=== PATIENT | female | born 2000 | race Caucasian/White ===

== ENCOUNTER 2024-06-19 15:12 | Emergency (ER) | payer BC, OTHER, SELFPAY ==
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
--- OUTSIDE RECORDS SUMMARY | 2024-06-19 15:22 | XMS_ITS | Data Portability ---
Author Organization [facility], [facility] [address] [facility] [address] Assessment No assessment recorded. Plan of Treatment Reminders Order Date Submit Date Provider Last Modified By Organization Details Last Modified Time Details Appointments None recorded. Lab SARS CoV 2 (COVID-19) Ag, QL, IA, upper respiratory specimen 2023 024 [email or web address] [facility], [address] [facility], [address], [place], [address], 4 09:46:14 Referral None recorded. Procedures None recorded. Surgeries None recorded. Imaging None recorded. Medication Orders Augmentin 875 mg-125 mg tablet 2023 024 [id number], [address], [place], [id number], 4 09:46:27 Deborah Hives 180 mg tablet 2023 024 [facility][id number], [address], [place], [id number], 4 09:46:26 nystatin 100,000 unit/mL oral suspension 2022 023 [id number], [address], [place], [id number], 4 09:28:19 Patient TargetsNo targets recorded. Patient Instructions Encounter Date Encounter Id Patient Instructions Last Modified By Organization Details Last Modified Time 11/29/2023 [id number] Acute Sinusitis: Care Instructions [email or web address] Not available 11/29/2023 09:46:12 Reason for Referral None Reported. Results Created Date Observation Date Name Description Value Unit Range Abnormal Flag Note LastModifiedBy Organization Detail LastModifiedTime 11/29/19 24 11/29/2023 SARS CoV 2 (COVI D-19) Ag, QL, IA, upper respi rator y speci men Unknown Analyte negati ve Not Available [facility] [address] [facility] [address], [place], [address], 11/29/2023 09:31:15 Result Notes None recorded. Problems Name Problem SNOMED Code Status Onset Date Resolution Date Notes Provider Name and Address Organization Details Recorded Time Tachycardia 8316189 Active 024 KLEVER tran [place] - [facility] 4 09:29:08 Anxiety 29128100 Active 023 BEBA tran [place] - [facility] 3 16:47:30 Problem Notes None recorded. Medical Equipment None Reported. Allergies No known drug allergies Medications Name Sig Start Date Stop Date Status Note LastModified by Organization Details LastModified Time medroxyprog esterone 10 mg tablet TAKE 1 TABLET BY MOUTH DAILY FOR 10 DAYS EACH MONTH 06/22 completed Not Available Not Available Not Available Augmentin 875 mg-125 mg tablet Take 1 tablet every 12 hours by oral route for 10 days. 2023 active Not Available Not Available Not Avai lable nystatin 100,000 unit/mL oral suspension SHAKE LIQUID AND TAKE 5 ML BY MOUTH FOUR TIMES DAILY FOR 5 DAYS 11/28 completed Not Available Not Available Not Available ibuprofen 800 mg tablet TAKE 1 TABLET BY MOUTH EVERY 6 HOURS FOR UP TO 10 DAYS NEEDED FOR MILD PAIN 06/22 completed Not Available Not Available Not Available ondansetron HCl 4 mg tablet active Not Available Not Available Not Available sulfamethox azole 800 mg-trimetho prim 160 mg tablet active Not Available Not Available Not Available ketorolac 10 mg tablet TAKE 1 TABLET BY MOUTH EVERY 6 HOURS FOR UP TO 4 DAYS NEEDED FOR MODERATE PAIN 04/16 /2023 completed Not Available Not Available Not Available sertraline 25 mg tablet TAKE 1 TABLET BY MOUTH DAILY 11/28 completed Not Available Not Available Not Available nitrofurant oin monohydrate /macrocryst als 100 mg capsule TAKE 1 CAPSULE BY MOUTH TWICE DAILY FOR 7 DAYS active Not Available Not Available No t Available Bystolic active Not Available Not Avai lable Not Available BinaxNOW COVID-19 Ag Self Test kit Use as Directed on the Package 06/22 completed Not Available Not Available Not Available Deborah Hives 180 mg tablet Take 1 tablet every day by oral route for 10 days. 2023 active Not Available Not Available Not Avai lable Vitals Date Recorded Body height Body mass index (BMI) Percentile per age and sex Body mass index (BMI) Body weight Body temperature Oxygen saturation Oxygen saturation in Arterial blood by Pulse oximetry Heart rate Respiratory rate Systolic blood pressure Diastolic blood pressure Provider Name and Address Organization Details Last Updated DateTime 3 157.48 cm 92 % 30.2 kg/m2 57773.7 4 g 97.5 [degF] 98 % 98 % 58 /min 16 /min 120 mm[Hg] 81 mm[Hg] BEBA NAVA [place] - [facility] 3 16:48:54 Date Recorded Body height Body mass index (BMI) Body weight Respiratory rate Oxygen saturation Oxygen saturation in Arterial blood by Pulse oximetry Body temperature Heart rate Pain severity - 0-10 verbal numeric rating [Score] - Reported Systolic blood pressure Diastolic blood pressure Provider Name and Address Organization Details Last Updated DateTime 4 157.48 cm 30 kg/m2 89319.1 5 g 18 /min 98 % 98 % 99 [degF] 90 /min 0 110 mm[Hg] 76 mm[Hg] KLEVER VILLA - [facility] 4 09:30:55 Social History Question Answer Notes LastModified by Organizat ion Details LastModified Time Tobacco Smoking Status Never Smoker BEBA tran [place] - [facility] 06/22/2022 16:47:42 What Is Your Level Of Alcohol Consumption? None [email or web address] Information not available 06/22/2022 Have You Had A Flu Shot This Season? No Information not available 11/29/2023 If No, Would You Like A Flu Shot Today? No Information not available 11/29/2023 Do You Use Any Illicit Or Recreational Drugs? No Information not available 06/22/2022 Have You Recently Traveled Abroad? No [email or web address] Information not available 06/22/2022 Sex: Unknown Functional Status None recorded. Mental Status None recorded. Family History Relationship Description Onset Age of this Age Resolved Age Notes LastModified by Organization Details LastModified Time Father No current problems or disability [email or web address] Not available 06/07 16:47:33 Mother No current problems or disability [email or web address] Not available 06/07 16:47:33 Medical History No medical history recorded. Gynecological History Statement/Question Response Date of LMP 10/28/2023 Is there any chance of ? No LMP Definite Obstetrics History GPAL:G 0 P 0 0 0 0 Past Encounters Encounter ID Performer Location Encounter Start Date Encounter Closed Date Diagnosis/Indication Diagnosis SNOMED-CT Code Diagnosis ICD10 Code Diagnosis Note [id number] [address] [place] [address] [place] [address] 05/26/2020 09:51:59 05/26/2020 10:20:49 [id number] [address] [facility] [place] [address] 09/15/2021 13:52:24 09/15/2021 14:20:08 [id number] Vladimir Lowe MD [address] [facility] [place] [address] 06/22/2022 16:39:32 06/22/2022 16:57:03 Candidiasis of mouth 88309493 B37.0 [id number] TORI MUÑOZ MD. [address] [facility] [place] [address] 11/29/2023 09:22:02 11/29/2023 09:45:26 Acute sinusitis 35392834 J01.90 Recheck in 2-3 days if no better. To ER for worsening symptoms. Suspected COVID-19 77444 4004 Z20.822 Health Concerns Section Related Observation LastModified by Organization Detai ls LastModified Time None Recorded Concern Status LastModified by Organization Details LastModified Time None Recorded Advance Directives Directive None Recorded Payers Encounter Date Sequence Insurance Name Policy Number Policy Baez Covered Member ID Baez Member ID Guarantor Name 05/26/2020 2 [employer] [place] () Tate Bryan [id number] [place] 09/15/2021 2 [employer] [place] [employer] [place] () Tate Bryan [id number] [place] 06/22/2022 1 [place] [id number] Nixon Monalisa [id number] [place]oly [place] 06/22/2022 2 [place] [employer] [place] [id number] Yoly Bryan 11/29/2023 1 [place] [id number] Nixon Sheldon [id number] Yoly Bryan 11/29/2023 2 [employer] [place] [employer] [place] () Tate Bryan [id number] Yoly Bryan Notes Date Note Type Note Provider Name and Address Organization Details Recorded Time 06/22/2022 text/html pt is concerned about oral thrush. she states that Patient just had baby x 3 days and has been on a lot of antibiotics Vladimir Lowe MD [address] [place], [address], [place] - [facility] 06/22/2022 16:55:48 11/29/2023 text/html Sinus Complaints UCReported bypatient.Location :sinus pain;facial pain;sinus pressure Associated Symptoms:no fever; no nausea or vomiting;nasal discharge from nostrils;headache; Post nasal drip;nasal passage blockage Quality:worsening; purulent Duration:intermitt ent Severity:moderate TORI MUÑOZ MD. [address] [place], [address], [place] - [facility] 11/29/2023 09:55:11 OBGyn Episode No OBEpisode recorded.
--- OUTSIDE RECORDS SUMMARY | 2024-06-19 15:22 | XMS_ITS | Continuity of Care Document ---
Author Name [facility] Organization [facility] Care Team Providers Care As400 Developer Name Role Phone [facility] Unavailable Unavailable Problems Combined list of problems from Department of Defense and Veterans Affairs facilities. It does not include entries that were removed or entered in error. Problem Status Onset Date Problem Type Date of Resolution Comments Source Anxiety Active 07/24/2023 Diagnosis 0013C-AF-C- 1 9TH [facility] POTS - postural orthostatic tachycardia syndrome Active 07/23/2023 Diagnosis 2154F-FA-I-1 9TH [facility] Anxiety Active 07/14/2023 Diagnosis 0013C-AF-C- 1 9TH [facility] Anxiety Active Condition 4984P-UV-R-1 9TH [facility] Results Combined list of recent chemistry, hematology and other laboratory results from Department of FSI and Veterans [employer], ranging from 15 months to all on record, depending upon the facility. Order Name Results Value Reference Range Date Interpretation Specimen Comments Source Chemistry Beta hCG, Serum Qual Positive 1 (10/11/21 1:50 PM) 10/11 N Interpretive Data: Interpretati ons: If result is questionable , repeat in 48 hours or reorder as B-HCG QT. NORMAL RANGE: The expected value for Human Chorionic Gonadotropin is negative in healthy men and non- women. 0013A-[facility] F[facility]T [facility] Vital Signs Combined list of inpatient and outpatient Vital Signs from Department of [facility] and [employer], ranging from 12 months to all on record, depending upon the facility. Vital Sign Value Date Comments Source Mean Arterial Pressure, Calc 85 mm[Hg] 06/26/2023 18:22:00 3343A-HA-T-1 9 [facility] Blood Pressure Manual Automatic 06/26/2023 18:22:00 2332M-RX-I-19TH [facility] BP Site Left arm 06/26/2023 18:22:00 0013C -AF-C-19TH [facility] Systolic Blood Pressure 109 mm[Hg] 06/26/2023 18:22:00 9873W-JO-N-19TH [facility] Diastolic Blood Pressure 73 mm[Hg] 06/26/2023 18:22:00 4077T-PO-Q-19TH [facility] Temperature Temporal Artery 36.7 Mona 06/26/2023 18:22:00 8780C-ZC-D-1 9TH [facility] Respiratory Rate 16 br/min 06/26/2023 18:22:00 2737E-OZ-Y-19TH [facility] Peripheral Pulse Rate 69 bpm 06/26/2023 18:22:00 7394N-TS-Z-19TH [facility] Respiratory Rate 18 br/min 10/11/2021 19:09:00 0895J-ED-S-19TH [facility] Peripheral Pulse Rate 82 bpm 10/11/2021 19:09:00 6186K-KR-T-19TH [facility] Systolic Blood Pressure 108 mm[Hg] 10/11/2021 19:09:00 1662L-YB-C-19TH [facility] Diastolic Blood Pressure 72 mm[Hg] 10/11/2021 19:09:00 4284C-ZS-T-19TH [facility] Mean Arterial Pressure, Calc 84 mm[Hg] 10/11/2021 19:09:00 6712Q-DR-N-1 9TH [facility] Temperature Temporal Artery 37.1 Mona 10/11/2021 19:09:00 4198U-RX-J-1 9TH [facility] Encounters Combined list of: 1) Encounters from Department of Veterans Affairs facilities going backup to the last 18 months, not all VA inpatient encounters are included; 2) Encounters from the Department of Defense facilities going backup to 280 months. Location Location Details Encounter Type Encounter Number Reason For Visit Attending Provider ADM Date DC Date Status Disposition Source Kassandra-AF- C-19TH [facility] Between Visit [id number] 06/30 Discharge Disposition: Home or Self Care 0013C-A F-C-19T H [facility] [place] Gisela-AF- C-19TH [facility] [id number] Anxiety disorde r, unspeci fied B[facility]RA [facility] 07/13 Discharge Disposition: Home or Self Care [address] [place] [address] [facility] Between Visit [id number] 07/14 Discharge Disposition: [facility] or Self Care [facility] [id number] Postura l orthost atic tachyca rdia syndrom e [POTS], Anxiety disorde r, unspeci asael [facility] 07/22 Discharge Disposition: Home or Self Care [address] [place] [address] [facility] Procedures Combined list of: 1) Procedures from Department of Veterans Affairs facilities [facility], not all CT non-surgical procedures are included; 2) All procedures from the Department [facility] facilities. Procedure Procedure Type Code Date Perfomer Comments Sour e No data available for this section Ambulatory P harmacy Social History Combined list of available smoking, tobacco, and other social history from Department of [facility] and [facility] facilities. Social History Type Response Date Comment Sourc e Sex Representation Female (finding) 04/23/2021 Unknown Organization Tobacco Exposure to Secondha nd Smoke: No. Never-cigarette user Cigarette use:. Never-other tobacco user (not cigarettes) Other Tobacco use:. Ambulatory Pharmacy Sexual Orientation Ambula tory Pharmacy Gender identity Ambulator y Pharmacy Assessment and Plan Combined list of future care activities from Department of Defense and Veterans Affairs facilities (e.g., assessment and plan notes, appointments, orders, and referrals). Additional future care activities may be listed in the Plan of Care section. Result Assessment and Plan Date Source Assessment and Plan Extracted from:Title : Virtual- Anxiety Author: BUSHRA BENTON NP Date: 07/22/23 1. A nxiety This appointment completed virtually. I did not physically see the patient. Discussed limitations of telephone appointment visits. Patient s name and verified. The patient verbally agreed to a telehealth appointment and documentation. Pt reports she was newly diagnosed with POTS and is not able to take the hydroxyzine or zoloft due to the fact that they cause her to have a higher than normal heart rate. Pt with hx of generalized anxiety, without complications, here for follow-up/monitoring. Denies SI/HI or panic attacks. Doing well with current treatment regime. - Med Changes: Stop taking hydroxyzine and zoloft.. Start Alprazolam 0.25mg #10 for the month. Continue Buspirone 7.5mg BID - Referral: Psychiatry for further eval, CBT, and medication mngt. - CRISTOFER-7 =1 Pt Education: - Counseling for stress mgmt techniques and offered handout for coping with anxiety. - Informed the patient of APImetrics and other available resources. - Pt should return to clinic for any worsening s/s and report to the nearest ER if they develop SI/HI or a panic attack. - Discussed common ADRs of lethargy, decreased libido, GI upset, etc and to not abruptly stop their medication. Follow-Up: - Pt is to f/u in 2-3 weeks virtually due to medication change and in 6 months if pt has been stable on current treatment. - Pt verbalized an understanding and agrees with plan of care. 2. P OTS - postural orthostatic tachycardia syndrome Bushra Benton NP [facility], [facility] [place] DEYANIRA CAMPOS Extracted from:Title: Virtual- Anxiety Author: BUSHRA BENTON NP Date: 07/14/23 1. A nxiety This appointment completed virtually. I did not physically see the patient. Discussed limitations of telephone appointment visits. Patient s name and verified. The patient verbally agreed to a telehealth appointment and documentation. Pt reports having increase in panic attacks recently. She reports having tachycardia that causes her anxiety to increase. She is looking for a medication to help in those situations. Pt denies any SI/HI ideations and understands that that is a reason to go to the ER. - Prescribed Vistaril for anxiety/panic attacks. Discussed if this is not helpful, to make a follow up appointment to discuss other options. - Follow up as needed. Ordered: hydrOXYzine(hydrOXYzine pamoate 50 mg oral capsule), 1 cap(s), Oral, TID, PRN anxiety, X 30 days, # 90 cap(s), 3 total refill(s), Acute, 11/11/2023, 1 cap(s) Oral TID,x30 days,PRN:anxiety, Pharmacy: [id number] [External Rx] Bushra Benton NP [facility], [facility] [place] [employer] Extracted from:Title: Office Clinic Note Author: PHUONG YANG, DO Date: 06/26/23 1. A bnormal wellness exam Pt is a 2 1 Years F - Discussed a healthful diet and regular exercise - Sent to immunizations clinic to ensure UTD - C ervical cancer screening , normal per pt - HCV testing p reviously performed; negative - HIV testing p reviously performed; negative Ordered: sertraline(Zoloft 25 mg oral tablet), 1 tab(s), Oral, Daily, # 90 tab(s), 1 total refill(s), Maintenance, 1 tab(s) Oral Daily, Pharmacy: [facility] #[id number] [External Rx] 2. A nxiety anxiety, chronic, established, previously well managed w/ zoloft 25mg daily, reports this worked really well for her in the past. She stopped taking it in 2022 after having some nausea in her early post course that was suspected to be 2/2 zolfot. was on this tx for 18 months previously w/otu adverse effects. rec retrying zoloft 25 mg daily pt counseled on GI side effects that are generally short term w/ this rx. pt denies SI/HI, given ED precautions for SI/Hi. Ordered: sertraline(Zoloft 25 mg oral tablet), 1 tab(s), Oral, Daily, # 90 tab(s), 1 total refill(s), Maintenance, 1 tab(s) Oral Daily, Pharmacy: [facility] #[id number] [External Rx] Extracted from:Title: CSSP Author: DELANEY FERRER Date: 10/11/21 [facility] Current Visit No Results Found Addendum by KAISER WHITMAN RN on October 11, 2021 16:31:51 CDT RESULTS: Called patient and verified full name and , not on PRP or flying status, not deployment related. Patient was informed her HCG was positive and m edications verified with patient. ? Per TIPS and patient report, she has Other healthcare insurance (OHI) and referral can not be placed as pays secondary and referral will not process. Pt advised to contact her primary insurance (BC[employer]) to find their list of in network providers and schedule an appt with FILTER TIP CATCHER. Patient r equested rx o f vitamins a t this time and was given certified medical technician instruction, ASE to monitor for, and f/u instructions. She was given information on the Family Advocacy Program will need to refer all related questions to her FILTER TIP CATCHER once care is established. PNV will be ready for activation in the [facility] in 24-48 business hours. MTF hours of operation and activation process provided to patient. Instructed her to go to the nearest ER if she experiences severe abdominal pain, cramping or vaginal bleeding, given NAL information as well. Patient asked questions from the MD Questionnaire and most current Test CSSP: 21yo F G 1 P 0 with LMP approx.29 Aug 2021 Positive Home : yes Current Medications: Z oloft 25 mg and Provera rx from [facility] FILTER TIP CATCHER for PCOS. Pt informed to stop taking this medication and f/u with FILTER TIP CATCHER. Pt stated she has not taken this medication in 2-3 weeks and denied any vaginal bleeding, cramping, s/s or concerns. Chronic Medical Problems: PCOS History of High Risk Pregnancies: denies Denies history of ectopic , thyroid disease, tubal surgery, infertility, diabetes, heart disease, pain since missed period and vaginal bleeding. Patient denies smoking and drinking. Patient does not work on [employer]. Patient verbalized agreed to plan of care/discussion and denied any additional questions or concerns at this time. Reviewed previous encounter notes, meds, labs, rad reports, JLV, T IPS, and allergies. PNV o rders placed per CSSP. 06/19/2024 7962E[facility] Functional Status Combined list of recent functional and cognitive assessments recorded at Department of Defense and Veterans Affairs (VA).VA Functional [place] Measurement (FIM) Scale: 1 = Total Assistance (Subject = 0% +), 2 = Maximal Assistance (Subject = 25% +), 3 = Moderate Assistance (Subject = 50% +), 4 = Minimal Assistance (Subject = 75% +), 5 = Supervision, 6 = Modified [place] (Device), 7 = Complete [place] (Timely, Safely). Assessment Date/Time Source Assessment Type Assessment Skill Assessment Score Assessment Details No data available for this section
[2024-06-19 15:26] VITALS: BP 119/71; PULSE 107; RESP 18; TEMP 36.9; O2SAT 100
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
== END 2024-06-19 16:40 | disposition home or self-care (01) ==
PROVIDERS: Emergency Provider Nurse Practitioner; Referring Provider Emergency Medicine
DX: S82.841A Displaced bimalleolar fracture of right lower leg, initial encounter for closed fracture (principal); V86.06XA Driver of dirt bike or motor/cross bike injured in traffic accident, initial encounter
CPT/HCPCS: 29515; 73610; 99214; G0463

== ENCOUNTER 2025-01-14 08:06 | Emergency (ER) | payer BC, SELFPAY ==
--- OUTSIDE RECORDS SUMMARY | 2023-09-18 03:50 | XMS_ITS ---
Author Organization [facility] MAIN Address [address] [facility] [place]A Johnston [id number] Care Team Providers Care Parts Control Clerk Name Role Phone [facility] Care Provide r Unavailable Jamaal Justin Unavailable [phone] Nikko Ramirez Unavailable [phone] Allergies No Known Allergies REASON FOR VISIT [...] none Encounters Encounter Location Date Provider Diagnosis [facility] MA[facility] 7 [facility] [place]A Johnston [phone] 09/18/2023 Nikko Ramirez Plan Of Treatment No Information Progress Notes * Yoly ADAMS LDOB:[birth year] (24 yo F)Acc No.[id number]:09/18/2023 History and Physical Patient: Yoly Neumann Provider: Anthony Ramirez M.D. :2000 A ge:23 Y S ex:Female Date:09/18/2023 Address:[address] [id number] Pcp:[facility] ck Subjective: * Chief Complaints: * [...] * Electronic signature of Harpal Ramirez on 01/14/2025 at 08:09 AM MANAGEMENT RECRUITER Sign off status: Pending * Provider: Anthony Ramirez M.D. Date: 0 09/18/2023 Generated for Jan rodriguez/Cyril/eTpinasmitting on: 03/16/2024 08:09 AM MANAGEMENT RECRUITER
--- OUTSIDE RECORDS SUMMARY | 2023-12-30 08:20 | XMS_ITS ---
Author Organization [facility] [id number] Care Team Providers Care Lockstitch Lining Setter Name Role Phone [place], [facility] Primary Care Provide r Unavailable Jamaal Justin Unavailable [phone] Nikko Ramirez Unavailable [phone] Encounters Encounter Location Date Provider Diagnosis [facility] [id number] 12/30/2023 Nikko Ramirez Plan Of Treatment No Information Progress Notes * Yoly ADAMS LDOB:[birth year] (24 yo F)Acc No.[id number]:12/30/2023 History and Physical Patient: Yoly Neumann Provider: Anthony Ramirez M.D. :2000 A ge:23 Y S ex:Female Date:12/30/2023 Address:[address] [place] , [id number] Pcp:[facility] Care Plan Details* * Electronic signature of Harpal Ramirez on 01/14/2025 at 08:09 AM BEEF LUGGER Sign off status: Pending * Provider: Anthony Ramirez M.D. Date: Generated for Jan rodriguez/Cyril/eTransmitting on: 03/16/2024 08:09 AM BEEF LUGGER
--- OUTSIDE RECORDS SUMMARY | 2024-09-26 03:15 | XMS_ITS | Continuity of Care Document ---
Author Organization [facility] Address [address] [place] [address] Phone Care Team Providers Care [employer] Power[employer] Supervisor Name Role Phone Kenneth Chavez Unavailable Unavailable Medications Medication Instructions Dosage Effective Dates (start - stop) Status Comments GABAPENTIN 300MG CAPSULES TAKE 1 CAPSULE BY MOUTH THREE TIMES DAILY - Active oxycodone 5 mg tablet take 1 tablet by oral route every 4 - 6 hours as needed as needed 5 MG - Active This medicine is an opioid narcotic and should be used only as needed. Wean off the medication as soon as tolerated. aspirin 81 mg tablet,delayed release take 1 tablet by oral route 2 times every day 81 MG - Active This medication is to help prevent blood clots. BYSTOLIC (unknown strength) take 1 tablet by oral route every day Not Available - Active Procedures Procedure Date RADEX ANKLE COMPL MINIMUM 3 VIEWS POSTOP FOLLOW-UP VISIT RADEX ANKLE COMPL MINIMUM 3 VIEWS Ankle Brace Lace Up Or Similar POSTOP FOLLOW-UP VISIT RADEX ANKLE COMPL MINIMUM 3 VIEWS Pneuma/vac walk boot pre ots POSTOP FOLLOW-UP VISIT TREATMENT OF ANKLE FRACTURE RADEX ANKLE 2 VIEWS OFFICE/OUTPATIENT VISIT NEW Advance Directives Directive Yes / No Effective Date File Name No Information Encounters Encounter Description Practice Location Reason(s) For Visit Diagnoses Date Provider Providers Copied on Encounter [facility], [address], [place], [address], [place] tel:[phone] [facility] Closed fracture of distal end of right fibula with routine healing, unspecified fracture morphology, subsequent encounter 5 Ajay Cooper. [address], [place], [place], [id number] , [place]. tel: [phone] [facility], [address], [place], [address], [place] tel:[phone] [facility] Closed fracture of distal end of right fibula with routine healing, unspecified fracture morphology, subsequent encounter 5 Ajay Cooper. [address], [place], [place], [id number] , [place]. tel: [phone] [facility], [address], [place], [address], [place] tel:[phone] [facility] Closed fracture of distal end of right fibula with routine healing, unspecified fracture morphology, subsequent encounter 5 Osei Miller. [address], [place], [place], [id number] . tel: [phone] [facility], [address], [place], [address], [place] tel:[phone] [facility] S/P ORIF (open reduction internal fixation) fracturePersonal history of (healed) traumatic fracture 5 Ajay Cooper. [address], [place], [place], [id number] , [place]. tel: [phone] [facility], [address], [place], [address], [place] tel:[phone] [facility] No Information 5 Osei Miller. [address], [place], [place], [id number] . tel: [phone] [facility], [address], [place], [address], [place] tel:[phone] [facility] Other fracture of upper and lower end of right fibula, initial encounter for closed fracture 5 Osei Miller. [address], [place], [place], [id number] . tel: [phone] [facility], [address], [place], [address], [place] tel:[phone] [facility] Closed fracture of distal end of right fibula, unspecified fracture morphology, initial encounterSyndesm otic disruption of right ankle, initial encounter 5 Osei Miller. [address], [place], [place], [id number] . tel: [phone] OFFICE/OUTPA TIENT VISIT NEW [facility], [address], [place], [address], [place] tel:[phone] [facility] Closed fracture of distal end of right fibula, unspecified fracture morphology, initial encounterBody mass index [BMI] 29.0-29.9, adult Jun- 5 Ajay Cooper. [address], [place], [place], [id number] , [place]. tel: [phone] Family History Family Member Type Diagnosis Age At Onset No Information Payers Payer name Insurance type Covered constitution party ID Authorangelesa brando(s) [place] [address] [place] [id number] [facility] [place] [id number] Social History Type Description Quantity Date Captured Comments Alcohol Use Details Unknown Caffeine Use Details Unknown Tobacco Use Status Current non-smoker Smoking Status Never smoker Sex Female Chief Complaint And Reason For Visit No Information Reason For Referral Reason For Referral No Information Plan Of Treatment Date Type Action Status Referral Ordered: RADEX ANKLE COMPL MINIMUM 3 VIEWS RT ankle ordered Referral Ordered: RADEX ANKLE COMPL MINIMUM 3 VIEWS RT ordered Referral Ordered: RADEX ANKLE COMPL MINIMUM 3 VIEWS LT ordered Referral Ordered: RADEX ANKLE 2 VIEWS RT ordered History Of Present Illness Encounter Date Complaint History Of Prese nt Illness No Information Functional Status Date Functional Assessmen t No Information Instructions Date Instruction Additional Infor jorje Exercise promotion: stretching R elated to Body mass index [BMI] 29.0-29.9, adult Assessments Type Assessment Date assessment Closed fracture of d istal end of right fibula with routine healing, unspecified fracture morphology, subsequent encounter Patient Care Teams Name Effective Dates (start - stop) Status Members No Information
--- OUTSIDE RECORDS SUMMARY | 2025-01-14 08:08 | XMS_ITS | Encounter Summary ---
Author Organization [facility] Address [address] [place] [address] Phone Care Team Providers Care Rehabilitation Clerk Name Role Phone Joy Steele MD Primary Care Provider [phone] No, Physician Primary Care Provider [phone] Juancho Ba Primary Care Provider [phone] Encounter Details Date Type Department Care Team (Latest Contact Info) Description 06/29/2023 Orders Only [facility] Jud Lizarraga, [address] [facility] [address] [place] [address] Social History Tobacco Use Types Packs/Day Years Used Date Smoking Tobacco: Never Smokeless Tobacco: Never Comments Unknown Sex and Gender Information Value Date Recorded Sex Assigned at Not on file 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 Gender Identity Not on file Sexual Orientation Not on file documented as of this encounter Plan of Treatment Not on file documented as of this encounter Procedures Procedure Name Priority Date/Time Associated Diagnosis Comments SCAN - LABS 06/29/2023 CARDIOLOGY DOCUMENT SCAN 06/29/2023 documented in this encounter Results * SCAN - LABS (06/29/2023) Result [facility] Jud Lizarraga RN Final Result * Cardiology Document Scan (06/29/2023) Anatomical Region Laterality Modality Other us Jud Lizarraga RN [facility] P ROCEDURES Final Result documented in this encounter Visit Diagnoses Not on filedocumented in this encounter Care Teams Rehabilitation Clerk Relationship Specialty Start Date End Date Joy Steele MD PCP - General 08/11/16 10/27/23 No, Physician PCP - General 10/28/23 09/27/24 Juancho Ba PA [address] [address] PCP - General Family Medicine 09/28/24 documented as of this encounter
--- OUTSIDE RECORDS SUMMARY | 2025-01-14 08:08 | XMS_ITS | Encounter Summary ---
Author Organization [facility] Address [address] [place] [address] Phone Care Team Providers Care Linting Machine Operator Name Role Phone Joy Steele MD Primary Care Provider [phone] No, Physician Primary Care Provider [phone] Juancho Ba Primary Care Provider [phone] Encounter Details Date Type Department Care Team (Latest Contact Info) Description 12/29/2022 Orders Only [facility] Jud Lizarraga, SUZANNE [address] [facility] [address] [place] [address] Social History Tobacco Use Types Packs/Day Years Used Date Smoking Tobacco: Never Smokeless Tobacco: Never Comments Unknown Sex and Gender Information Value Date Recorded Sex Assigned at Not on file 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 Gender Identity Not on file Sexual Orientation Not on file documented as of this encounter Plan of Treatment Not on file documented as of this encounter Procedures Procedure Name Priority Date/Time Associated Diagnosis Comments CARDIOLOGY DOCUMENT SCAN 12/29/2022 documented in this encounter Results * Cardiology Document Scan (12/29/2022) Anatomical Region Laterality Modality Other Jud Lizarraga RN [facility] P ROCEDURES Final Result documented in this encounter Visit Diagnoses Not on filedocumented in this encounter Care Teams Linting Machine Operator Relationship Specialty Start Date End Date Joy Steele MD PCP - General 08/11/16 10/27/23 No, Physician PCP - General 10/28/23 09/27/24 Juancho Ba PA [address] [address] PCP - General Family Medicine 09/28/24 documented as of this encounter
--- OUTSIDE RECORDS SUMMARY | 2025-01-14 08:08 | XMS_ITS | Encounter Summary ---
Author Organization [facility] Address [address] [place] [address] Phone Care Team Providers Care Picker / Packer Name Role Phone Joy Steele MD Primary Care Provider [phone] No, Physician Primary Care Provider [phone] Juancho Ba Primary Care Provider [phone] Encounter Details Date Type Department Care Team (Latest Contact Info) Description 11/28/2022 Orders Only 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 Gender Identity Not on file Sexual Orientation Not on file documented as of this encounter Plan of Treatment Not on file documented as of this encounter Procedures Procedure Name Priority Date/Time Associated Diagnosis Comments SCAN - RADIOLOGY/IMAGING 11/28/2022 documented in this encounter Results * SCAN - RADIOLOGY/IMAGING (11/28/2022) Anatomical Region Laterality Modality Other Result [facility] Jud Lizarraga RN Final Result documented in this encounter Visit Diagnoses Not on filedocumented in this encounter Care Teams Picker / Packer Relationship Specialty Start Date End Date Joy Steele MD PCP - General 08/11/16 10/27/23 No, Physician PCP - General 10/28/23 09/27/24 Juancho Ba PA [address] [address] PCP - General Family Medicine 09/28/24 documented as of this encounter
--- OUTSIDE RECORDS SUMMARY | 2025-01-14 08:08 | XMS_ITS | Encounter Summary ---
Author Organization [facility] Address [address] [place] [address] Phone Care Team Providers Care Bathroom Tiling Professional Name Role Phone Joy Steele MD Primary Care Provider [phone] No, Physician Primary Care Provider [phone] Juancho Ba Primary Care Provider [phone] Encounter Details Date Type Department Care Team (Latest Contact Info) Description 01/08/2023 Orders Only [facility] Jud Lizarraga, SUZANNE [address] [facility] [address] [place] [address] Social History Tobacco Use Types Packs/Day Years Used Date Smoking Tobacco: Never Smokeless Tobacco: Never Comments Unknown Sex and Gender Information Value Date Recorded Sex Assigned at Not on file 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 Gender Identity Not on file Sexual Orientation Not on file documented as of this encounter Plan of Treatment Not on file documented as of this encounter Procedures Procedure Name Priority Date/Time Associated Diagnosis Comments CARDIOLOGY DOCUMENT SCAN 01/08/2023 documented in this encounter Results * Cardiology Document Scan (01/08/2023) Anatomical Region Laterality Modality Other Jud Lizarraga RN [facility] P ROCEDURES Final Result documented in this encounter Visit Diagnoses Not on filedocumented in this encounter Care Teams Bathroom Tiling Professional Relationship Specialty Start Date End Date Joy Steele MD PCP - General 08/11/16 10/27/23 No, Physician PCP - General 10/28/23 09/27/24 Juancho Ba PA [address] [address] PCP - General Family Medicine 09/28/24 documented as of this encounter
--- OUTSIDE RECORDS SUMMARY | 2025-01-14 08:08 | XMS_ITS | Encounter Summary ---
Author Organization [facility] Address [address] [place] [address] Phone Care Team Providers Care Account Installer Name Role Phone Joy Steele MD Primary Care Provider [phone] No, Physician Primary Care Provider [phone] Juancho Ba Primary Care Provider [phone] Encounter Details Date Type Department Care Team (Latest Contact Info) Description 10/27/2023 Orders Only [facility] Jud Lizarraga, SUZANNE [address] [facility] [address] [place] [address] Social History Tobacco Use Types Packs/Day Years Used Date Smoking Tobacco: Never Smokeless Tobacco: Never Comments Unknown Sex and Gender Information Value Date Recorded Sex Assigned at Not on file 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 Gender Identity Not on file Sexual Orientation Not on file documented as of this encounter Plan of Treatment Not on file documented as of this encounter Procedures Procedure Name Priority Date/Time Associated Diagnosis Comments CARDIOLOGY DOCUMENT SCAN 10/27/2023 documented in this encounter Results * Cardiology Document Scan (10/27/2023) Anatomical Region Laterality Modality Other Jud Lizarraga RN [facility] P ROCEDURES Final Result documented in this encounter Visit Diagnoses Not on filedocumented in this encounter Care Teams Account Installer Relationship Specialty Start Date End Date Joy Steele MD PCP - General 08/11/16 10/27/23 No, Physician PCP - General 10/28/23 09/27/24 Juancho Ba PA [address] [address] PCP - General Family Medicine 09/28/24 documented as of this encounter
--- OUTSIDE RECORDS SUMMARY | 2025-01-14 08:08 | XMS_ITS | Encounter Summary ---
Author Organization [facility] Address [address] [place] [address] Phone Care Team Providers Care Certified Respiratory Therapist Name Role Phone Joy Steele MD Primary Care Provider [phone] No, Physician Primary Care Provider [phone] Juancho Ba Primary Care Provider [phone] Encounter Details Date Type Department Care Team (Latest Contact Info) Description 07/05/2023 Orders Only [facility] Jud Lizarraga, SUZANNE [address] [facility] [address] [place] [address] Social History Tobacco Use Types Packs/Day Years Used Date Smoking Tobacco: Never Smokeless Tobacco: Never Comments Unknown Sex and Gender Information Value Date Recorded Sex Assigned at Not on file 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 Gender Identity Not on file Sexual Orientation Not on file documented as of this encounter Plan of Treatment Not on file documented as of this encounter Procedures Procedure Name Priority Date/Time Associated Diagnosis Comments SLEEP LAB/STUDY - RESULT 07/05/2023 documented in this encounter Results * SLEEP LAB/STUDY - RESULT (07/05/2023) Jud Lizarraga RN Final Result documented in this encounter Visit Diagnoses Not on filedocumented in this encounter Care Teams Certified Respiratory Therapist Relationship Specialty Start Date End Date Joy Steele MD PCP - General 08/11/16 10/27/23 No, Physician PCP - General 10/28/23 09/27/24 Juancho Ba PA [address] [address] PCP - General Family Medicine 09/28/24 documented as of this encounter
--- OUTSIDE RECORDS SUMMARY | 2025-01-14 08:09 | XMS_ITS | Patient Health Record ---
Author Organization [facility] Address [address] [facility] [place] [id number] Care Team Providers Care Cadastral Engineer Name Role Phone [facility] Primary Care Provide r Marcelino BerrioserJamaal Unavailable [phone] Allergies No Known Allergies Reason For Referral No Information Medications Medication SIG (Take, Route, Frequency, Duration) Notes Start Date End Date Status Nebivolol HCl 2.5 MG Tablet TAKE 2 TABLETS BY MOUTH DAILY; Duration: 30 make appt for more details Active Midodrine HCl 2.5 MG Tablet 1 tablet Orally Twice a day; Duration: 30 day(s) 11/01/2023 Active Social History Tobacco Use: Social History Observation [...] other than smoking Are you an other tobacco user? No Tobacco Use/Smoking Smoking Status: nonsmoker Additional Details Category Social Info Options Details Miscellaneous: Exercise: 3-4 times per week Caffeine: none Problems Problem Type SNOMED Code ICD Code Onset Dates Problem Status W/U Status Risk Notes Problem Palpitations (41953814) Palpitations (R00.2) Active confirmed recurrent palpitation Problem Syncope and collapse (272358969) Neurocardiogeni c syncope (R55) Active confirmed Positive HUT for Neurocardiogenic near syncope. Now with thu syncope. Will start her on Midodrine2.5 mg TID. Advised to stop in case of suspected . Problem Obstructive sleep apnea syndrome (59185628) WINNIE (obstructive sleep apnea) (G47.33) Active confirmed AHI=1.4. Not qualified for CPAP Problem Dizziness and giddiness (265861465) Orthostatic dizziness (R42) Active confirmed Exacerbated by . Recommend hydration. Problem Shortened CO interval (81616948) Shortened CO interval (R94.31) Active confirmed No delta wave Problem Family history of atrial fibrillation (268611628) Family history of atrial fibrillation (Z82.49) Active confirmed Problem Sleep apnea (94135673) Sleep apnea in adult (G47.30) Active confirmed Typical sympt oms of WINNIE. WINNIE can cause SVT. Order sleep test Problem Palpitations (41906784) Palpitation (R00.2) Active confirmed Problem Supraventricular tachycardia (4768218) SVT (supraventricul ar tachycardia) (I47.10) Active confirmed She is referred by Dr. Justin. She c/o waking up from sleeping with palpitation and HR 140 bpm in the past 1 year. When she stood up, HR went to 160 bpm., worse with EtOH and caffein. FH (+) for Afib. The palpitation associated with nausea, dizziness and near syncope, 3x/day almost everyday. She drink water only. No HTN, DM, HLD. Echo is normal. Monitor showed sinus tachycardia may be inappropriate with HR 160 bpm with minimal activities. One episode of SVT 150 bpm converted abruptly to SR, consider EAT. CBC, BMP, Mg, TSH, T4 are WNL. HUT showed Neurocardiogenic pre- syncope. Her SVT is now much better with no significant episodes since starting Bystolic. she now has decreased the dose to 1/2 of a 2.5 mg daiy Problem Ectopic atrial tachycardia (589954864) Ectopic atrial tachycardia (I47.19) Active confirmed One episode of EAT 150 bpm. Plan Of Treatment Pending Test Test Name Order Date ECG 12/29/2022 ECG 10/27/2023 ECG 07/16/2023 ECG 05/29/2023 ECG 01/08/2022 Echo - 2D Echo (with 3D if indicated) Social Media Marketer - Event Monitor 12/30/19 Future Test Test Name Order Date Echo - 2D Echo (with 3D if indicated) Social Media Marketer - Event only 14 days 01/2023 EP - Tilt Table Test 05/29/2023 Sleep Study 05/29/2023 EP - Tilt Table Test 06/26/2023 Insurance Providers Payer Name Payer Address Payer Phone Subscriber Number Group Number Insured Name Patient Relationship to Insured Coverage Start Date Coverage End Date BC[employer] Of [place] [address]AH[id number] [phone] [id number] Nixon Sheldon Child - Insured has Financial Responsibility [facility] [address] [place] [address] [id number] [facility] Active Group B Tate Adams Spouse - patient is the spouse of the insured 3 Medical (General) History Medical History History ICD Code Neurocardiogenic pre-syncope R55 Surgical History Surgery Date(Month/Year)
--- OUTSIDE RECORDS SUMMARY | 2025-01-14 08:09 | XMS_ITS | Data Portability ---
Author Organization DAISY - [facility], [facility] [address] [facility] [address] Assessment No assessment recorded. Plan of Treatment Reminders Order Date Submit Date Provider Last Modified By Organization Details Last Modified Time Details Appointments None recorded. Lab SARS CoV 2 (COVID-19) Ag, QL, IA, upper respiratory specimen 2023 024 [email or web address] [id number] [address] [facility] [address], [place], [address], 4 09:46:14 Referral None recorded. Procedures None recorded. Surgeries None recorded. Imaging None recorded. Medication Orders Augmentin 875 mg-125 mg tablet 2023 024 [facility] #[id number], [address] [facility], [place], [place], [id number], 4 09:46:27 Dbeorah Hives 180 mg tablet 2023 024 [facility] #[id number], [address] [facility], [place], [place], [id number], 4 09:46:26 nystatin 100,000 unit/mL oral suspension 2022 023 [email or web address] [facility] #[id number], [address] [facility], [place], [place], [id number], 4 09:28:19 Patient TargetsNo targets recorded. Patient Instructions Encounter Date Encounter Id Patient Instructions Last Modified By Organization Details Last Modified Time 11/29/2023 [id number] Acute Sinusitis: Care Instructions [email or web address] Not available 11/29/2023 09:46:12 Reason for Referral None Reported. Results Created Date Observation Date Name Description Value Unit Range Abnormal Flag Note LastModifiedBy Organization Detail LastModifiedTime 11/29/19 24 11/29/2023 SARS CoV 2 (COVI D-19) Ag, QL, IA, upper respi rator y speci men Unknown Analyte negati ve Not Available [id number] [address] [facility] [address], [place], [address], 11/29/2023 09:31:15 Result Notes None recorded. Problems Name Problem SNOMED Code Status Onset Date Resolution Date Notes Provider Name and Address Organization Details Recorded Time Anxiety 53673507 Active 023 BEBA tran PA - [facility] 3 16:47:30 Tachycardia 6136179 Active 024 KLEVER tran PA - [facility] 4 09:29:08 Problem Notes None recorded. Medical Equipment None [...] TO 4 DAYS NEEDED FOR MODERATE PAIN 06/22 completed Not Available Not Available [...] Recorded Body height Body mass index (BMI) [Percentile] Per age and sex Body mass index (BMI) Body weight Body temperature Oxygen saturation Oxygen saturation in Arterial blood by Pulse oximetry Heart rate Respiratory rate Systolic And Diastolic Provider Name and Address Organization Details Last Updated DateTime 3 157.48 cm 92 % 30.2 kg/m2 51966.7 4 g 97.5 [degF] 98 % 98 % 58 /min 16 /min 120/81 mm[Hg] BEBA NAVA PA - [facility] 3 16:48:54 Date Recorded Body height Body mass index (BMI) Body weight Respiratory rate Oxygen saturation Oxygen saturation in Arterial blood by Pulse oximetry Body temperature Heart rate Pain severity - 0-10 verbal numeric rating [Score] - Reported Systolic And Diastolic Provider Name and Address Organization Details Last Updated DateTime 4 157.48 cm 30 kg/m2 93074.1 5 g 18 /min 98 % 98 % 99 [degF] 90 /min 0 110/76 mm[Hg] KLEVER DARBY PA - [facility] 4 09:30:55 Social History Question Answer Notes LastModified by Organizat ion Details LastModified Time Tobacco Smoking Status Never Smoker BEBA tran PA Gisell [facility] 06/22/2022 16:47:42 Have You Had A Flu Shot This Season? No Information not available 11/29/2023 If No, Would You Like A Flu Shot Today? No Information not available 11/29/2023 Have You Recently Traveled Abroad? No [email or web address] Information not available 06/22/2022 Sex: Unknown Functional Status Question Answer Note LastModified by Organizat ion Details LastModified Time Do you use any illicit or recreational drugs? No Information not available 06/22/2022 What is your level of alcohol consumption? None Information not available 06/22/2022 Mental Status None recorded. Family History Relationship Description Onset Age of this Age Resolved Age Notes LastModified by Organization Details LastModified Time Father No current problems or disability Not available 06/07 16:47:33 Mother No current problems or disability [email or web address] Not available 06/07 16:47:33 Medical History No medical history recorded. Gynecological History Statement/Question Response Date of LMP 10/28/2023 Is there any chance of ? No LMP Definite Obstetrics History GPAL:G 0 P 0 0 0 0 Past Encounters Encounter ID Performer Location Encounter Start Date Encounter Closed Date Diagnosis/Indication Diagnosis SNOMED-CT Code Diagnosis ICD10 Code Diagnosis IMO Codes Diagnosis Note [id number] [facility] [place] [address] [place] [address] 05/26/2020 09:51:59 05/26/2020 10:20:49 [id number] [facility] [address] [facility] [place] [address] 09/15/2021 13:52:24 09/15/2021 14:20:08 [id number] Vladimir Lowe MD [facility] [address] [facility] [place] [address] 06/22/2022 16:39:32 06/22/2022 16:57:03 Candidiasis of mouth 64054686 B37.0 [id number] TORI MUÑOZ MD. [address] [address] [facility] [place] [address] 11/29/2023 09:22:02 11/29/2023 09:45:26 Acute sinusitis 49149952 J01.90 Recheck in 2-3 days if no better. To ER for worsening symptoms. Suspected COVID-19 07845 4004 Z20.822 Health Concerns Section Related Observation LastModified by Organization Detai ls LastModified Time None Recorded Concern Status LastModified by Organization Details LastModified Time None Recorded Advance Directives Directive None Recorded Payers Insurance Date Sequence Insurance Name Policy Number Policy Baez Covered Member ID Baez Member ID Guarantor Name 11/30/2023 1 [place] [id number] Nixon Sheldon [id number] Yoly Adams 11/30/2023 2 [facility] () Tate Bryan [id number] Yoly Adams Notes Date Note Type Note Provider Name and Address Organization Details Recorded Time 06/22/2022 text/html ROS as noted in the HPI pt is concerned about oral thrush. she states that Patient just had baby x 3 days and has been on a lot of antibiotics Vladimir Lowe MD [address] [place], [address], [employer] 06/22/2022 16:55:48 11/29/2023 text/html Sinus Complaints UCReported by PatientHPIFor location, patient reportssinus pain,facial pain, andsinus pressure. For associated symptoms, patient reportsnasal discharge from __ nostrils,headache __,post nasal drip, andnasal passage blockage __but reportsno feverandno nausea or vomiting. For quality, patient reportsworseningand purulent. For duration, patient reportsintermittent . For severity, patient reportsmoderate. TORI MUÑOZ MD. [address] [place], [address], [employer] [facility] 11/29/2023 09:55:11 OBGyn Episode No OBEpisode recorded.
--- OUTSIDE RECORDS SUMMARY | 2025-01-14 08:09 | XMS_ITS | Clinical Summary ---
Author Organization [facility] Address [facility] [place] [address] Care Team Providers Care Cloud Architect Name Role Phone Juancho Ba Primary Care Provider [phone] Allergies Active Allergy Reactions Criticality Noted Date Comments Prednisone Other (See comments) Low 02/17/2018 Patient got very hot Medications omeprazole OTC (PriLOSEC OTC) 20 mg EC tablet 10/23/2016 Act lesli nebivoloL (BYSTOLIC) 2.5 mg tablet Take 1 tablet (2.5 mg total) by mouth daily Active Active Problems Problem Noted Date Diagnosed Date Obesity (BMI 30-39.9) 04/04/2024 WINNIE (obstructive sleep apnea) 04/04/2024 UTI symptoms 10/21/2022 PCOS (polycystic ovarian syndrome) 02/07/2021 Gastroesophageal reflux disease without esophagi tis 10/17/2020 Anxiety disorder 08/16/2019 Palpitations 08/21/2016 Heart palpitations 08/21/2016 Internal nasal lesion 02/09/2015 Asthma, intermittent 12/20/2011 Sleep walking 12/20/2011 Immunizations Immunization Administration Dates Next Due DTaP 08/19/2006, 7,10/31/2002,10/31,02/23/2002,02/23/2002,2001 ,2001,2001,2001 HPV9 05/02/2016,12/10/2015,10/09/2015 Hep A, Pediatric 08/19/2006,11/14/2005 Hep B, Adolescent or Pediatric 10/31/2002,2001,2001 Hib (PRP-D) 10/31/2002,2001,2001 IPV 11/14/2005, 3,2001,09/20 Influenza, Quadrivalent, Spl it, Intramuscular 05/21/2020 Influenza, Quadrivalent, Spl it, Preservative Free, Intramuscular 12/06/2020,10/12/2020 Influenza, Trivalent, Cell Culture-based MDCK, Preservative Free, Antibiotic Free, Intramuscular 01/19/2023,12/17/2021 Influenza, Unspecified 09/28/2024(Deferred: [place] ent Refused) MMR 08/19/2006,07/18/2002 Meningococcal MCV4P (Menactra) 10/26/2017,2012 PPD TEST 09/28/2024,11/14/2005,11/14/2005 Pneumococcal Conjugate PCV 13 10/31/2002 ,02/23/2002,2001,09/20 Pneumococcal Conjugate, Unspecified 10/08,02/23/2002,2001,09/20 Tdap 03/31/2022,09/17/2012 Varicella 09/06/2013,07/18/2002 Surgical History Surgery Date Site/Laterality Comments SKIN BIOPSY ANKLE FRACTURE SURGERY 06/24/2024 Right Medical History Medical History Date Comments Palpitations Reflux gastritis Asthma Anxiety Family History Medical History Relation Name Comments No Known Problems Brother Diabetes Father Nohemi Sheldon Hypertension Father Nohemi Sheldon Arrhythmia Mother Family history of cardiac arrhythmia - (Added by TW Conv) Atrial fibrillation Mother No Known Problems Sister Relation Name Status Comments Brother Alive Father Nohemi Sheldon Alive Mother Alive Sister Alive Social History Tobacco Use Types Packs/Day Years Used Date Smoking Tobacco: Never Smokeless Tobacco: Never Tobacco Cessation:Counseling Given: Not Answered PHQ-2 Answer Date Recorded PHQ-2 Total Score (If total score is 3 or more points, staff should administer the PHQ-9) 0 09/28/2024 PHQ-9 Answer Date Recorded PHQ-9 Total Score 0 09/28/2024 Comments Unknown Sex and Gender Information Value Date Recorded Sex Assigned at Not on file 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 Gender Identity Not on file Sexual Orientation Not on file Last Filed Vital Signs Vital Sign Reading Time Taken Comments Blood Pressure 104/70 09/28/2024 9:39 AM CDT Pulse 67 09/28/2024 9:39 AM CDT Temperature 36.5 C (97.7 F) 11/12/2023 10:21 AM CDT Respiratory Rate 18 09/28/2024 9:39 AM CDT Oxygen Saturation 99% 09/28/2024 9:39 AM CDT Inhaled Oxygen Concentration - - Weight 70.3 kg (155 lb) 09/28/2024 9:39 AM CDT Height 157.5 cm (5' 2) 09/28/2024 9:39 AM CDT Body Mass Index 28.35 09/28/2024 9:39 AM CDT Plan of Treatment Health Maintenance Due Date Last Done Comments Cervical Cancer Screening 2001 Hepatitis C Screening 2001 Pneumococcal vaccine <65 (1 of 1 - PPSV23, PCV20, or PCV21) 07/20/2007 10/31/2002, 10/31/2002, 02/23/2002, Additional history exists Meningococcal B Vaccine (1 o f 2 - Standard) 2017 Regular Well Visit/Exam 18-64 07/20/2019 Covid-19 Vaccine (3 - 2024-2 6 season) 2024 11/09/2020, 10/10/2020 Influenza Vaccine (#1) 2024 , 12/17/2021, 12/06/2020, Additional history exists Depression Screening 09/28/2025 09/28/2024 DTaP/Tdap/Td Vaccine (8 - Td or Tdap) 03/31/2032 03/31/2022, 09/17/2012, 08/19/2006, Additional history exists Hepatitis B Screening Completed 10/31/2002 , 2001, 2001 Varicella Vaccines Completed 09/06/2013, 07/18/2002 HPV Vaccines Completed 05/02/2016, 10/05/2015, 10/09/2015 Insurance [employer] Member Subscriber Plan / Payer (Ef fective 2018-Present) Name:Yoly Adams Relation to Subscriber:Child Name:NOHEMI SHELDON Date of :1971 (Home) Address: [address] [place] [address] [place] [address] Payer ID:[id number] (NAIC) Type:[facility] Address: [address] [facility] CLAIMS [address] [place] [address] CLAIMS Care Teams Cloud Architect Relationship Specialty Start Date End Date Juancho Ba PA [address] [address] PCP - General Family Medicine 09/28/24
[2025-01-14 08:17] VITALS: BP 114/82; PULSE 93; RESP 18; TEMP 36.6; O2SAT 100
--- NOTE | 2025-01-14 08:29 | ED.URI ---
HPI - URI/Sore Throat General Chief Complaint: Upper Respiratory Infection Stated Complaint: sick Time Seen by Provider: 01/14/25 08:20 Source: patient and RN notes reviewed Mode of arrival: ambulatory Limitations: no limitations History of Present Illness HPI Narrative: 24-year-old female patient presents today complaining of a 2 day history of nasal congestion, cough, rhinorrhea. States congestion is slightly better today than yesterday. Denies fever, body aches, shortness of breath. She has tried DayQuil and NyQuil with some mild relief. Reports history of asthma as a child, but none as an adult. She is a nonsmoker. States her child was just hospitalized for rhino virus. Related Data Home Medications ?Medication ?Instructions ?Recorded ?Confirmed ?Last Taken ?Type nebivolol 5 mg tablet (Bystolic) 5 mg PO DAILY 06/19/24 06/19/24 Unknown History Allergies Allergy/AdvReac Type Severity Reaction Status Date / Time prednisone AdvReac Mild Other Verified 01/14/25 08:18 [facility] Comments At time of signature, I have reviewed and agree with nursing past medical, surgical, social and family history unless otherwise noted. Please see nursing chart for further information. There is no relevant family history pertinent to the presenting complaint Exam Narrative: GENERAL: Mildly ill-appearing, well-nourished, and in no acute distress. HEAD: Normocephalic, atraumatic. EYES: EOMI. No redness or drainage. Conjunctivae normal. ENT: Mucous membranes pink and moist. Nares congested rhinorrhea. TMs normal bilaterally. Throat normal. Uvula midline. NECK: Normal AROM. Supple. No lymphadenopathy. CHEST: No respiratory distress. Clear to auscultation. HEART: Regular rate and rhythm. No murmur appreciated. EXTREMITIES: Normal range of motion. No edema. SKIN: Warm, dry, no rash. Capillary refill normal. Normal skin turgor. NEURO: No focal deficits. Alert and oriented x3. Gait steady. PSYCH: Normal affect. No signs of depression or anxiety. Course Course Level of Care: Express Care Visit Vital Signs Vital signs: Vital Signs Temperature 97.9 F 01/14/25 08:17 Pulse Rate 93 01/14/25 08:17 Respiratory Rate 18 01/14/25 08:17 Blood Pressure 114/82 01/14/25 08:17 Pulse Oximetry 100 01/14/25 08:17 Oxygen Delivery Room Air 01/14/25 08:17 Temperature 97.9 F 01/14/25 08:17 Pulse Rate 93 01/14/25 08:17 Respiratory Rate 18 01/14/25 08:17 Blood Pressure 114/82 01/14/25 08:17 Pulse Oximetry 100 01/14/25 08:17 Oxygen Delivery Room Air 01/14/25 08:17 Reviewed MDM - URI/Sore Throat MDM Narrative Medical decision making narrative: 24-year-old female patient presents today complaining of a 2 day history of nasal congestion, cough, rhinorrhea. States congestion is slightly better today than yesterday. Denies fever, body aches, shortness of breath. She has tried DayQuil and NyQuil with some mild relief. Reports history of asthma as a child, but none as an adult. She is a nonsmoker. States her child was just hospitalized for rhino virus. Upon exam, patient has some nasal congestion and rhinorrhea and is mildly ill appearing. Symptoms likely viral in etiology, likely rhinovirus due to exposure from her child. No testing indicated at this time. Discussed [id number] medication use and duration of illness. No prescription medications indicated at this time. Anticipatory guidance given. Vital signs stable. Patient agrees with plan. Differential Diagnosis Differential diagnosis: Likely upper respiratory infection and viral infection Critical Care Time Critical Care Time Critical Care Time: No Discharge Plan Discharge Clinical Impression: Upper respiratory infection Qualifiers: URI type: unspecified URI Qualified Code(s): J06.9 - Acute upper respiratory infection, unspecified Patient Disposition: Home Condition: Stable Instructions: Upper Respiratory Infection (DC) Additional Instructions: Your symptoms are likely due to a viral illness, which is not treated with antibiotics. Virus symptoms can last for up to 7-10days. Take Tylenol or ibuprofen for pain or fever. Consider Sudafed and Flonase to help with your nasal congestion and facial pressure. Rest and stay hydrated. Follow up with your PCP in 7-10 days if symptoms are not improving. Go to the ER immediately if you develop shortness of breath, difficulty swallowing, or any other concerning symptoms. Patient Language: Austrian Prescriptions: No Action nebivolol [Bystolic] 5 mg tablet 5 mg PO DAILY Follow-up/Referrals: UNKNOWN,DOCTOR [Primary Care Provider] Time of Disposition: 08:31
== END 2025-01-14 08:34 | disposition home or self-care (01) ==
PROVIDERS: Emergency Provider Nurse Practitioner
DX: J06.9 Acute upper respiratory infection, unspecified (principal); I10 Essential (primary) hypertension
CPT/HCPCS: 99211; G0463

== ENCOUNTER 2025-02-21 19:40 | Emergency (ER) | payer BC, SELFPAY ==
--- OUTSIDE RECORDS SUMMARY | 2023-09-18 03:50 | XMS_ITS ---
Author Organization [facility] MAIN Address [address] [facility] DEYANIRA Johnston [id number] Care Team Providers Care Mental Health Program Manager Name Role Phone [facility] Provide r Unavailable Jamaal Justin Unavailable [phone] Nikko Ramirez Unavailable [phone] Allergies No Known Allergies REASON FOR VISIT 2 mos Social History Tobacco Use: Social History Observation Description Date Details (start date - stop date) Never Smoker NA - NA Social History Drugs/Alcohol: Social Info Question Answer Notes Drugs Have you used drugs other than those for medical reasons in the past 12 months? No Alcohol Screen Did you have a drink containing alcohol in the past year? No Points 0 Interpretation Negative Tobacco Use: Social Info Question Answer Notes Tobacco use other than smoking Are you an other tobacc o user? No Tobacco Use/Smoking Smoking Status: nonsmoker Additional Details Category Social Info Options Details Miscellaneous: Exercise: none Caffeine: none Encounters Encounter Location Date Provider Diagnosis [facility] MA[facility] [address] [facility] [place]A Johnston [id number] 09/18/2023 Nikko Ramirez Plan Of Treatment No Information Progress Notes * Yoly ADAMS LDOB:[birth year] (24 yo F)Acc No.[id number]:09/18/2023 History and Physical Patient: Yoly Neumann Provider: Anthony Ramirez M.D. :2000 A ge:23 Y S ex:Female Date:09/18/2023 Address:[address] [id number] Pcp:[facility] ck Subjective: * Chief Complaints: * 2 mos * Medical History: No Medical History Documented Medical History Verified * Surgical History: Denies Past Surgical History. Surgical History verified. * Hospitalization/Major Diagno stic Procedure: Denies Past Hospitalization. Hospitalization Verified. * Family History: F ather: alive. M other: alive, diagnosed with AFib. M aternal Grand Mother: diagnosed with AFib. 1 brother(s) , 1 sister(s) - healthy. . F amily History Verified.. extensive maternal hx of AFIB. * Social History: T obacco Use: T obacco Use/Smoking S moking Status: n onsmoker. T obacco use other than smoking?Are you an other tobacco user? N o. D rugs/Alcohol: D rugs H ave you used drugs other than those for medical reasons in the past 12 months??No. A lcohol Screen D id you have a drink containing alcohol in the past year? N o,?Points 0 , I nterpretation N egative. M iscellaneous: C affeine: none. Exercise: none. Social History Verified. * Allergies: N .K.D.A.yesAllergies Verified. Care Plan Details* * Electronic signature of Harpal Ramirez on 02/21/2025 at 07:43 PM CMM OPERATOR Sign off status: Pending * Provider: Anthony Ramirez M.D. Date: 0 09/18/2023 Generated for Jan rodriguez/Cyril/eTestheritting on: 1 04/24/2024 07:43 PM CMM OPERATOR
--- OUTSIDE RECORDS SUMMARY | 2023-12-30 08:20 | XMS_ITS ---
Author Organization [facility] [id number] Care Team Providers Care Radio Presenter Name Role Phone [place], [facility] Primary Care Provide r Unavailable Jamaal Justin Unavailable [phone] Nikko Ramirez Unavailable [phone] Encounters Encounter Location Date Provider Diagnosis [facility] [phone] 12/30/2023 Nikko Ramirez Plan Of Treatment No Information Progress Notes * Yoly ADAMS LDOB:[birth year] (24 yo F)Acc No.[id number]:12/30/2023 History and Physical Patient: Yoly Neumann Provider: Anthony Ramirez M.D. :2000 A ge:23 Y S ex:Female Date:12/30/2023 Address:[address] , [id number] Pcp:[facility] Care Plan Details* * Electronic signature of Harpal Ramirez on 02/21/2025 at 07:43 PM HUMAN RESOURCES TRAINING MANAGER Sign off status: Pending * Provider: Anthony Ramirez M.D. Date: Generated for Jan rodriguez/Cyril/eTransmitting on: 04/24/2024 07:43 PM HUMAN RESOURCES TRAINING MANAGER
--- OUTSIDE RECORDS SUMMARY | 2024-09-26 03:15 | XMS_ITS | Continuity of Care Document ---
Author Organization [facility] Address [address] [place] [address] Phone Care Team Providers Care School Director Name Role Phone Kenneth Chavez Unavailable Unavailable [...] Providers Copied on Encounter [facility], [address], [place], [address], [place] tel:[phone] [facility] Closed fracture of distal end of right fibula with routine healing, unspecified fracture morphology, subsequent encounter 5 Ajay Cooper. [address], [place], [place], [address] , [place]. tel: [phone] [facility], [address], [place], [address], [place] tel:[phone] [facility] Closed fracture of distal end of right fibula with routine healing, unspecified fracture morphology, subsequent encounter 5 Ajay Cooper. [address], [place], [place], [address] , [place]. tel: [phone] [facility], [address], [place], [address], [place] tel:[phone] [facility] Closed fracture of distal end of right fibula with routine healing, unspecified fracture morphology, subsequent encounter 5 Osei Miller. [address], [place], [place], [address] . tel: [phone] [facility], [address], [place], [address], [place] tel:[phone] [facility] S/P ORIF (open reduction internal fixation) fracturePersonal history of (healed) traumatic fracture 5 Ajay Cooper. [address], [place], [place], [address] , [place]. tel: [phone] [facility], [address], [place], [address], [place] tel:[phone] [facility] No Information 5 Osei Miller. [address], [place], [place], [address] . tel: [phone] [facility], [address], [place], [address], [place] tel:[phone] [facility] Other fracture of upper and lower end of right fibula, initial encounter for closed fracture 5 Osei Miller. [address], [place], [place], [address] . tel: [phone] [facility], [address], [place], [address], [place] tel:[phone] [facility] Closed fracture of distal end of right fibula, unspecified fracture morphology, initial encounterSyndesm otic disruption of right ankle, initial encounter 5 Osei Miller. [address], [place], [place], [address] . tel: [phone] OFFICE/OUTPA TIENT VISIT NEW [facility], [address], [place], [address], [place] tel:[phone] [facility] [place] Closed fracture of distal end of right fibula, unspecified fracture morphology, initial encounterBody mass index [BMI] 29.0-29.9, adult Jun- 5 Ajay Cooper. [address], [place], [place], [address] , [place]. tel: [phone] Family History Family Member Type Diagnosis Age At Onset No Information Payers Payer name Insurance type Covered democrat ID Authorangelesa brando(s) [place] [id number] [place] [id number] Located Within [facility] OT [id number] Social History Type Description Quantity Date Captured [...]
--- OUTSIDE RECORDS SUMMARY | 2024-09-26 03:15 | XMS_ITS | Continuity of Care Document ---
Author Organization [facility] Address [address] [place] [address] Phone Care Team Providers Care Tempering Kiln Tender Name Role Phone Kenneth Chavez Unavailable Unavailable [...] Providers Copied on Encounter [facility], [address], [place], [address], [place] tel:[phone] [facility] Closed fracture of distal end of right fibula with routine healing, unspecified fracture morphology, subsequent encounter 5 Ajay Cooper. [address], [place], [place], [address] , [place]. tel: [phone] [facility], [address], [place], [address], [place] tel:[phone] [facility] Closed fracture of distal end of right fibula with routine healing, unspecified fracture morphology, subsequent encounter 5 Ajay Cooper. [address], [place], [place], [address] , [place]. tel: [phone] [facility], [address] [facility] [address], [place], [address], [place] tel:[phone] [facility] Closed fracture of distal end of right fibula with routine healing, unspecified fracture morphology, subsequent encounter 5 Osei Miller. [address], [place], [place], [address] . tel: [phone] [facility], [address], [place], [address], [place] tel:[phone] [facility] S/P ORIF (open reduction internal fixation) fracturePersonal history of (healed) traumatic fracture 5 Ajay Cooper. [address], [place], [place], [address] , [place]. tel: [phone] [facility], [address] [facility] [address], [place], [address], [place] tel:[phone] [facility] No Information 5 Osei Miller. [address], [place], [place], [address] . tel: [phone] [facility], [address], [place], [address], [place] tel:[phone] [facility] Other fracture of upper and lower end of right fibula, initial encounter for closed fracture 5 Osei Miller. [address], [place], [place], [address] . tel: [phone] [facility], [address], [place], [address], [place] tel:[phone] [facility] Closed fracture of distal end of right fibula, unspecified fracture morphology, initial encounterSyndesm otic disruption of right ankle, initial encounter 5 Osei Miller. [address], [place], [place], [address] . tel: [phone] OFFICE/OUTPA TIENT VISIT NEW [facility], [address], [place], [address], [place] tel:[phone] [facility] [place] Closed fracture of distal end of right fibula, unspecified fracture morphology, initial encounterBody mass index [BMI] 29.0-29.9, adult Jun- 5 Ajay Cooper. [address], [place], [place], [address] , [place]. tel: [phone] Family History Family Member Type Diagnosis Age At Onset No Information Payers Payer name Insurance type Covered alliance party ID Authorangelesa brando(s) [place] [id number] [facility] OT [id number] Social History Type Description Quantity Date Captured [...]
--- NOTE | 2025-02-21 19:42 | ED_ITS ---
HPI - Ear Problem General Chief complaint: Ear Stated complaint: L ear Source: patient and RN notes reviewed Mode of arrival: ambulatory Limitations: no limitations History of Present Illness HPI Narrative: Patient is a 24-year-old female who presents to the [facility] with complaints of dizziness and ear discomfort. Patient states that she started having a status on Thursday. She states that she had what she thought was a sinus infection over the past week. She states that she has discomfort near her left ear. She states that the sinus congestion has somewhat resolved. However, she has had intermittent dizziness. She states that she was fine yesterday but the dizziness returned today. Dizziness is resolved when she tilts her head a certain way. She denies chest pain or shortness breath. She is neurologically intact no obvious neurological deficits. Related Data Home Medications ?Medication ?Instructions ?Recorded ?Confirmed ?Last Taken ?Type nebivolol 5 mg tablet (Bystolic) 5 mg PO DAILY 5 02/21/25 Unknown History Allergies Allergy/AdvReac Type Severity Reaction Status Date / Time prednisone AdvReac Mild Other Verified 02/21/25 19:42 Review of Systems Review of Systems: CONSTITUTIONAL: Denies fever, chills, or sweats. EYES: Denies visual changes, redness, or discharge. ENT: Reports ear pain. CARDIOVASCULAR: Denies chest pain, palpitations, or edema. RESPIRATORY: Denies cough or dyspnea. GASTROINTESTINAL: Denies abdominal pain, nausea, vomiting, or diarrhea. GENITOURINARY: Denies dysuria or hematuria. SKIN: Denies rash or itching. MUSCULOSKELETAL: Denies back pain, joint pain, or myalgia. NEUROLOGIC: Denies headache, but reports dizziness. Pertinent positives per HPI. PMFSH Comments At the time of my signature, I reviewed and agree with the nursing past medical, surgical, social, and family history. There is no relevant family history pertinent to the patient complaint. Exam Narrative: GENERAL: This is a well-nourished, well-developed patient, in no apparent distress. HEAD: normocephalic, atraumatic. EYES: Sclera clear/white. Vision is grossly intact. EARS: External ears normal. Bilateral TM erythematous with effusion. Hearing grossly intact. NOSE: External nose normal with no obvious nasal discharge, nares without redness, no rhinorrhea. THROAT: Mucous membranes moist, posterior pharynx clear. NECK: Neck supple, non-tender without lymphadenopathy, masses or thyromegaly. CARDIOVASCULAR: Regular rate and rhythm without murmurs, gallops, or rubs. RESPIRATORY: Clear to auscultation. Breath sounds equal bilaterally. No wheezes, rales, or rhonchi. GASTROINTESTINAL: Abdomen soft, non-tender, nondistended. Bowel sounds are active. No hepato-splenomegaly, or palpable masses. No guarding. SKIN: warm, intact with no suspicious lesions or rash, good texture and turgor. NEURO: awake, alert, and oriented to person, place and time. There were no obvious focal neurologic abnormalities. Course Course Level of Care: Express Care Visit Vital Signs Vital signs: Vital Signs Temperature 97.3 F L 02/21/25 19:46 Pulse Rate 78 02/21/25 19:46 Respiratory Rate 18 02/21/25 19:46 Blood Pressure 117/82 02/21/25 19:46 Pulse Oximetry 100 02/21/25 19:46 Oxygen Delivery Room Air 02/21/25 19:46 Temperature 97.3 F L 02/21/25 19:46 Pulse Rate 78 02/21/25 19:46 Respiratory Rate 18 02/21/25 19:46 Blood Pressure 117/82 02/21/25 19:46 Pulse Oximetry 100 02/21/25 19:46 Oxygen Delivery Room Air 02/21/25 19:46 Reviewed MDM MDM Narrative Medical decision making narrative: Take antibiotics as directed. May given ibuprofen and/or Tylenol as needed for pain and/or fever. Follow up with primary care provider in 7-10 days to have ear rechecked. Differential Diagnosis Differential Diagnosis: otitis media, otitis externa, cerumen impaction, serous otitis media, vertigo Critical Care Time Critical Care Time Critical Care Time: No Discharge Plan Discharge Clinical Impression: Bilateral otitis media with effusion, Vertigo Patient Disposition: Home Condition: Stable Instructions: Antibiotic Form, Vertigo (ED), Ear Infection (ED), Fluid In The Ear (Serous Otitis Media) (ED) Additional Instructions: Take antibiotics as directed. May given ibuprofen and/or Tylenol as needed for pain and/or fever. Follow up with primary care provider in 7-10 days to have ear rechecked. Patient Language: Bengali Prescriptions: New amoxicillin-pot clavulanate 875-125 mg tablet 1 tablet PO Q12H 10 Days Qty: 20 0RF fluticasone propionate [Flonase Allergy Relief] 50 mcg/actuation spray,suspension 1 spray intranasal BID Qty: 16 0RF Rx Instructions: administer into each nostril No Action nebivolol [Bystolic] 5 mg tablet 5 mg PO DAILY Follow-up/Referrals: UNKNOWN,DOCTOR [Primary Care Provider] Time of Disposition: 19:53
--- OUTSIDE RECORDS SUMMARY | 2025-02-21 19:43 | XMS_ITS | Encounter Summary ---
Author Organization [facility] Address [address] [place] [address] Phone Care Team Providers Care Supervisor Customer Services Name Role Phone Joy Steele MD Primary Care Provider [phone] No, Physician Primary Care Provider [phone] Juancho Ba Primary Care Provider [phone] Encounter Details Date Type Department Care Team (Latest Contact Info) Description 11/28/2022 Orders Only [facility] Jud Lizarraga, SUZANNE [address] [facility] [address] [place] [address] Social History Tobacco Use Types Packs/Day Years Used Date Smoking Tobacco: Never Smokeless Tobacco: Never Comments Unknown Sex and Gender Information Value Date Recorded Sex Assigned at Not on file 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 Gender Identity Not on file Sexual Orientation Not on file documented as of this encounter Plan of Treatment Not on file documented as of this encounter Procedures Procedure Name Priority Date/Time Associated Diagnosis Comments SCAN - RADIOLOGY/IMAGING 11/28/2022 documented in this encounter Results * SCAN - RADIOLOGY/IMAGING (11/28/2022) Anatomical Region Laterality Modality Other Result [facility] Jud Lizarraga RN Final Result documented in this encounter Visit Diagnoses Not on filedocumented in this encounter Care Teams Supervisor Customer Services Relationship Specialty Start Date End Date Joy Steele MD PCP - General 08/11/16 10/27/23 No, Physician PCP - General 10/28/23 09/27/24 Juancho Ba PA [address] [address] PCP - General Family Medicine 09/28/24 documented as of this encounter
--- OUTSIDE RECORDS SUMMARY | 2025-02-21 19:43 | XMS_ITS | Encounter Summary ---
Author Organization [facility] Address [address] [place] [address] Phone Care Team Providers Care Traffic Line Painter Name Role Phone Joy Steele MD Primary Care Provider [phone] No, Physician Primary Care Provider [phone] Juancho Ba Primary Care Provider [phone] Encounter Details Date Type Department Care Team (Latest Contact Info) Description 01/08/2023 Orders Only [facility] Jud Lizarraga, SUZANNE [address] [facility] [address] [place] [address] Social History Tobacco Use Types Packs/Day Years Used Date Smoking Tobacco: Never Smokeless Tobacco: Never Comments Unknown Sex and Gender Information Value Date Recorded Sex Assigned at Not on file 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
--- OUTSIDE RECORDS SUMMARY | 2025-02-21 19:43 | XMS_ITS | Encounter Summary ---
Author Organization [facility] Address [address] [place] [address] Phone Care Team Providers Care Thrasher Feeder Name Role Phone Joy Steele MD Primary Care Provider [phone] No, Physician Primary Care Provider [phone] Juancho Ba Primary Care Provider [phone] Encounter Details Date Type Department Care Team (Latest Contact Info) Description 10/27/2023 Orders Only [facility] Jud Lizarraga, SUZANNE [address] [facility] [address] [place] [address] Social History Tobacco Use Types Packs/Day Years Used Date Smoking Tobacco: Never Smokeless Tobacco: Never Comments Unknown Sex and Gender Information Value Date Recorded Sex Assigned at Not on file 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
--- OUTSIDE RECORDS SUMMARY | 2025-02-21 19:43 | XMS_ITS | Encounter Summary ---
Author Organization [facility] Address [address] [place] [address] Phone Care Team Providers Care Foster Parent Name Role Phone Joy Steele MD Primary Care Provider [phone] No, Physician Primary Care Provider [phone] Juancho Ba Primary Care Provider [phone] Encounter Details Date Type Department Care Team (Latest Contact Info) Description 06/29/2023 Orders Only [facility] Jud Lizarraga, SUZANNE [address] [facility] [address] [place] [address] Social History Tobacco Use Types Packs/Day Years Used Date Smoking Tobacco: Never Smokeless Tobacco: Never Comments Unknown Sex and Gender Information Value Date Recorded Sex Assigned at Not on file 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 Gender Identity Not on file Sexual Orientation Not on file documented as of this encounter Plan of Treatment Not on file documented as of this encounter Procedures Procedure Name Priority Date/Time Associated Diagnosis Comments SCAN - LABS 06/29/2023 CARDIOLOGY DOCUMENT SCAN 06/29/2023 documented in this encounter Results * SCAN - LABS (06/29/2023) Result [facility] Jud Lizarraga RN Final Result * Cardiology Document Scan (06/29/2023) Anatomical Region Laterality Modality Other us Jud Lizarraga RN [facility] P ROCEDURES Final Result documented in this encounter Visit Diagnoses Not on filedocumented in this encounter Care Teams Foster Parent Relationship Specialty Start Date End Date Joy Steele MD PCP - General 08/11/16 10/27/23 No, Physician PCP - General 10/28/23 09/27/24 Juancho Ba PA [address] [address] PCP - General Family Medicine 09/28/24 documented as of this encounter
--- OUTSIDE RECORDS SUMMARY | 2025-02-21 19:43 | XMS_ITS | Patient Health Record ---
Author Organization [facility] Address [address] [facility] [place] [id number] Care Team Providers Care Card Brusher Name Role Phone [facility] Primary Care Provide r Marcelino BerrioserJamaal Unavailable [phone] Allergies No Known Allergies Reason For Referral [...] Status W/U Status Risk Notes Problem Palpitations (58674844) Palpitations (R00.2) Active confirmed recurrent palpitation Problem Syncope and collapse (007805602) Neurocardiogeni c syncope (R55) Active confirmed Positive HUT for Neurocardiogenic near syncope. Now with thu syncope. Will start her on Midodrine2.5 mg TID. Advised to stop in case of suspected . Problem Obstructive sleep apnea syndrome (12111686) WINNIE (obstructive sleep apnea) (G47.33) Active confirmed AHI=1.4. Not qualified for CPAP Problem Dizziness and giddiness (074999800) Orthostatic dizziness (R42) Active confirmed Exacerbated by . Recommend hydration. Problem Shortened CT interval (88831512) Shortened CT interval (R94.31) Active confirmed No delta wave Problem Family history of atrial fibrillation (998211049) Family history of atrial fibrillation (Z82.49) Active confirmed Problem Sleep apnea (61477473) Sleep apnea in adult (G47.30) Active confirmed Typical sympt oms of WINNIE. WINNIE can cause SVT. Order sleep test Problem Palpitations (31522601) Palpitation (R00.2) Active confirmed Problem Supraventricular tachycardia (8339155) SVT (supraventricul ar tachycardia) (I47.10) Active confirmed [...] 2.5 mg daiy Problem Ectopic atrial tachycardia (578714966) Ectopic atrial tachycardia (I47.19) Active confirmed One episode of EAT 150 bpm. Plan Of Treatment Pending Test Test Name Order Date ECG 05/29/2023 ECG 07/16/2023 ECG 10/27/2023 ECG 01/08/2022 ECG 12/29/2022 Echo - 2D Echo (with 3D if indicated) Mechanic And Welder - Event Monitor 12/30/19 Future Test Test Name Order Date Echo - 2D Echo (with 3D if indicated) Mechanic And Welder - Event only 14 days 01/2023 EP - Tilt Table Test 05/29/2023 Sleep Study 05/29/2023 EP - Tilt Table Test 06/26/2023 Insurance Providers Payer Name Payer Address Payer Phone Subscriber Number Group Number Insured Name Patient Relationship to Insured Coverage Start Date Coverage End Date BCBS Of [place] LEAHY [id number] [phone] [id number] Nixon Sheldon Child - Insured has Financial Responsibility 9 [facility] [address] [place] [address] [id number] [facility] Active Group B Tate Adams Spouse - patient is the spouse of the insured 3 Medical (General) History Medical History History ICD Code Neurocardiogenic pre-syncope R55 Surgical History Surgery Date(Month/Year)
--- OUTSIDE RECORDS SUMMARY | 2025-02-21 19:43 | XMS_ITS | Encounter Summary ---
Author Organization [facility] Address [address] [place] [address] Phone Care Team Providers Care Assembly Adjuster Name Role Phone Joy Steele MD Primary Care Provider [phone] No, Physician Primary Care Provider [phone] Juancho Ba Primary Care Provider [phone] Encounter Details Date Type Department Care Team (Latest Contact Info) Description 07/05/2023 Orders Only [facility] Jud Lizarraga, SUZANNE [address] 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
--- OUTSIDE RECORDS SUMMARY | 2025-02-21 19:43 | XMS_ITS | Encounter Summary ---
Author Organization [facility] Address [address] [place] [address] Phone Care Team Providers Care Laster Hand Name Role Phone Joy Steele MD Primary Care Provider [phone] No, Physician Primary Care Provider [phone] Juancho Ba Primary Care Provider [phone] Encounter Details Date Type Department Care Team (Latest Contact Info) Description 12/29/2022 Orders Only [facility] Jud Lizarraga, SUZANNE [address] [facility] [address] [place] [address] Social History Tobacco Use Types Packs/Day Years Used Date Smoking Tobacco: Never Smokeless Tobacco: Never Comments Unknown Sex and Gender Information Value Date Recorded Sex Assigned at Not on file 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
--- OUTSIDE RECORDS SUMMARY | 2025-02-21 19:44 | XMS_ITS | Clinical Summary ---
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 Gender Identity Not on file Sexual Orientation [...] HPV Vaccines Completed 05/02/2016, 10/05/2015, 10/09/2015 Insurance [employer] O[employer] Member Subscriber Plan / Payer (Ef fective 2018-Present) Name:Yoly Adams Relation to Subscriber:Child Name:NOHEMI SHELDON Date of :1971 (Home) Address: [address] [place] [address] [place] [address] Payer ID:[id number] (NAIC) Type:[facility] Address: [address] [facility] CLAIMS [employer] [place] [address] CLAIMS Care Teams Logistics Supply Officer Relationship Specialty Start Date End Date Juancho Ba PA [address] [address] PCP - General Family Medicine 09/28/24
--- OUTSIDE RECORDS SUMMARY | 2025-02-21 19:44 | XMS_ITS | Data Portability ---
Author Organization [facility], [facility] [address] [facility] [address] Assessment No assessment recorded. Plan of Treatment Reminders Order Date Submit Date Provider Last Modified By Organization Details Last Modified Time Details Appointments None recorded. Lab SARS CoV 2 (COVID-19) Ag, QL, IA, upper respiratory specimen 2023 024 [facility] [address] [facility], [address], [place], [address], 4 09:46:14 Referral None recorded. Procedures None recorded. Surgeries None recorded. Imaging None recorded. Medication Orders Augmentin 875 mg-125 mg tablet 2023 024 [id number], [address], [place], [place], [id number], 4 09:46:27 Deborah Hives 180 mg tablet 2023 024 [id number], [address], [place], [place], [id number], 4 09:46:26 nystatin 100,000 unit/mL oral suspension 2022 023 [email or web address][id number], [address], [place], [place], [id number], 4 09:28:19 Patient TargetsNo targets recorded. Patient Instructions Encounter Date Encounter Id Patient Instructions Last Modified By Organization Details Last Modified Time 11/29/2023 [id number] Acute Sinusitis: Care Instructions [email or web address] Not available 11/29/2023 09:46:12 Reason for Referral None Reported. Results Created Date Observation Date Name Description Value Unit Range Abnormal Flag Note LastModifiedBy Organization Detail LastModifiedTime 11/29/19 24 11/29/2023 SARS CoV 2 (COVI D-19) Ag, QL, IA, upper respi rator y speci men Unknown Analyte negati ve Not Available [id number] [address] [facility] [address], [place], [address], 11/29/2023 09:31:15 Result Notes None recorded. Problems Name Problem SNOMED Code Status Onset Date Resolution Date Notes Provider Name and Address Organization Details Recorded Time Anxiety 17216039 Active 023 BEBA tran PA - [facility] 3 16:47:30 Tachycardia 5721476 Active 024 KLEVER tran [facility] - [facility] [...] (BMI) Body weight Body temperature Oxygen saturation Heart rate Respiratory rate Systolic And Diastolic Provider Name and Address Organization Details Last Updated DateTime 3 157.48 cm 92 % 30.2 kg/m2 06046.7 4 g 97.5 [degF] 98 % 58 /min 16 /min 120/81 mm[Hg] BEBA NAVA PA - [facility] 3 16:48:54 Date Recorded Body height Body mass index (BMI) Body weight Respiratory rate Oxygen saturation Body temperature Heart rate Pain severity - 0-10 verbal numeric rating [Score] - Reported Systolic And Diastolic Provider Name and Address Organization Details Last Updated DateTime 4 157.48 cm 30 kg/m2 21068.1 5 g 18 /min 98 % 99 [degF] 90 /min 0 110/76 mm[Hg] KLEVER DARBY PA - [facility] 4 09:30:55 Social History Question Answer Notes LastModified by Organizat ion Details LastModified Time Tobacco Smoking Status Never Smoker BEBA tran PA - [facility] 06/22/2022 16:47:42 Have You Had A Flu Shot This Season? No Information not available 11/29/2023 If No, Would You Like A Flu Shot Today? No Information not available 11/29/2023 Have You Recently Traveled Abroad? No [email or web address] Information not available 06/22/2022 Sex: Unknown Functional Status Question Answer Note LastModified by Organizat ion Details LastModified Time Do you use any illicit or recreational drugs? No [email or web address] Information not available 06/22/2022 What is your level of alcohol consumption? None [email or web address] Information not available 06/22/2022 Mental Status None recorded. Family History Relationship Description Onset Age of this Age Resolved Age Notes LastModified by Organization Details LastModified Time Father No current problems or disability Not available 06/07 16:47:33 Mother No current problems or disability [email or web address] Not available 06/07 16:47:33 Medical History No medical history recorded. Gynecological History Statement/Question Response Date of LMP 10/28/2023 Is there any chance of ? No LMP Definite Obstetrics History GPAL:G 0 P 0 0 0 0 Past Encounters Encounter ID Performer Location Encounter Start Date Encounter Closed Date Diagnosis/Indication Diagnosis SNOMED-CT Code Diagnosis ICD10 Code Diagnosis IMO Codes Diagnosis Note [id number] [facility] [place] [address] [place] [address] 05/26/2020 09:51:59 05/26/2020 10:20:49 [id number] [address] [address] [place] [address] 09/15/2021 13:52:24 09/15/2021 14:20:08 [id number] Vladimir Lowe MD [address] [place] [address] 06/22/2022 16:39:32 06/22/2022 16:57:03 Candidiasis of mouth 75864320 B37.0 [id number] TORI MUÑOZ MD. [address] [place] [address] 11/29/2023 09:22:02 11/29/2023 09:45:26 Acute sinusitis 48674617 J01.90 Recheck in 2-3 days if no better. To ER for worsening symptoms. Suspected COVID-19 20304 4004 Z20.822 Health Concerns Section Related Observation LastModified by Organization Detai ls LastModified Time None Recorded Concern Status LastModified by Organization Details LastModified Time None Recorded Advance Directives Directive None Recorded Payers Insurance Date Sequence Insurance Name Policy Number Policy Baez Covered Member ID Baez Member ID Guarantor Name 11/30/2023 1 [place] [id number] Nixon Sheldon [id number] Yoly Adams 11/30/2023 2 [facility] () Tate Bryan [id number] Yoly Adams Notes Date Note Type Note Provider Name and Address Organization Details Recorded Time 06/22/2022 text/html ROS as noted in the HPI pt is concerned about oral thrush. she states that Patient just had baby x 3 days and has been on a lot of antibiotics Vladimir Lowe MD [address] [place], [address], [facility] 06/22/2022 16:55:48 11/29/2023 text/html Sinus Complaints UCReported by PatientHPIFor location, patient reportssinus pain,facial pain, andsinus pressure. For associated symptoms, patient reportsnasal discharge from __ nostrils,headache __,post nasal drip, andnasal passage blockage __but reportsno feverandno nausea or vomiting. For quality, patient reportsworseningand purulent. For duration, patient reportsintermittent . For severity, patient reportsmoderate. TORI MUÑOZ MD. [address] [place], [address], [facility] 11/29/2023 09:55:11 OBGyn Episode No OBEpisode recorded.
[2025-02-21 19:46] VITALS: BP 117/82; PULSE 78; RESP 18; TEMP 36.3; O2SAT 100
== END 2025-02-21 19:56 | disposition home or self-care (01) ==
PROVIDERS: Emergency Provider Nurse Practitioner
DX: H65.93 Unspecified nonsuppurative otitis media, bilateral (principal); R42 Dizziness and giddiness; I10 Essential (primary) hypertension; Z86.16 Personal history of COVID-19
CPT/HCPCS: 99213; G0463